=== PATIENT | male | born 1990 | race Caucasian/White ===

== ENCOUNTER → 2020-01-05 15:14 | Outpatient (BNVA) | payer BC, SELFPAY | PROVIDERS: Family Provider Nurse Practitioner; PCP Nurse Practitioner; Visit Provider Nurse Practitioner | DX: Z11.59 Encounter for screening for other viral diseases (principal) | CPT/HCPCS: 87635 ==

== ENCOUNTER → 2020-02-24 11:24 | Outpatient (BNVA) | payer BC, SELFPAY | PROVIDERS: Family Provider Nurse Practitioner; PCP Nurse Practitioner; Visit Provider Nurse Practitioner Family | DX: R05 Cough (principal) | CPT/HCPCS: 71046; 80053; 85025 ==

== ENCOUNTER → 2020-04-12 11:43 | Outpatient (BNVA) | payer BC, SELFPAY | PROVIDERS: Family Provider Nurse Practitioner; PCP Nurse Practitioner; Visit Provider Nurse Practitioner Family | DX: R19.7 Diarrhea, unspecified (principal); R53.83 Other fatigue; M54.9 Dorsalgia, unspecified; G89.29 Other chronic pain | CPT/HCPCS: 72072; 72100; 80053; 82306; 82607; 83630; 84550; 85025; 85651; 86038; 86140; 86431; 87338; 87493; 87506 ==

== ENCOUNTER → 2020-10-20 15:03 | Outpatient (BNVA) | payer OTHER, SELFPAY | PROVIDERS: Family Provider Nurse Practitioner; PCP Nurse Practitioner; Visit Provider Nurse Practitioner | DX: R05 Cough (principal); H61.23 Impacted cerumen, bilateral; J45.909 Unspecified asthma, uncomplicated | CPT/HCPCS: 71046; 85025 ==

== ENCOUNTER → 2021-05-19 11:23 | Outpatient (BNVA) | payer OTHER, SELFPAY | PROVIDERS: Family Provider Nurse Practitioner; PCP Nurse Practitioner Family; Visit Provider Nurse Practitioner Family | DX: Z13.6 Encounter for screening for cardiovascular disorders (principal); K21.9 Gastro-esophageal reflux disease without esophagitis; L60.8 Other nail disorders; R10.84 Generalized abdominal pain; M54.50 Low back pain, unspecified; G89.29 Other chronic pain; Z68.33 Body mass index [BMI] 33.0-33.9, adult | CPT/HCPCS: 80053; 80061; 82306; 82607; 84443; 85025; 86003 ==

== ENCOUNTER → 2021-05-26 09:53 | Outpatient (BNVA) | payer OTHER, SELFPAY | PROVIDERS: Family Provider Nurse Practitioner; PCP Nurse Practitioner Family; Visit Provider Nurse Practitioner Family | DX: Z20.822 Contact with and (suspected) exposure to COVID-19 (principal) | CPT/HCPCS: 87635 ==

== ENCOUNTER 2021-11-06 20:35 | Emergency (ER) | payer OTHER, SELFPAY ==
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
--- NOTE | 2021-11-06 20:37 | CTR_ITS ---
PROCEDURE INFORMATION: Exam: CT Head Without Contrast Exam date and time: 11/06/2021 10:07 PM Age: 31 years old Clinical indication: Injury or trauma; Fall; Blunt trauma (contusions or hematomas); Additional info: Head injury TECHNIQUE: Imaging protocol: Computed tomography of the head without contrast. Radiation optimization: All CT scans at this facility use at least one of these dose optimization techniques: automated exposure control; mA and/or kV adjustment per patient size (includes targeted exams where dose is matched to clinical indication); or iterative reconstruction. COMPARISON: CT Sinus wo IV contrast* [id number] 2015-05-13 09:40 RADIATION DOSE METRICS: Total DLP (mGy-cm): 891.71 FINDINGS: Brain: Normal. No hemorrhage. Unremarkable white matter. No mass effect. Cerebral ventricles: No ventriculomegaly. Paranasal sinuses: Visualized sinuses are unremarkable. No fluid levels. Mastoid air cells: Visualized mastoid air cells are well aerated. Bones/joints: Unremarkable. No acute fracture. Soft tissues: Right lateral scalp and subgaleal hematomas and lacerations. CT/CT head wo con* [id number] IMPRESSION: Right lateral scalp and subgaleal hematomas and lacerations.
[2021-11-06 21:00] VITALS: BP 123/76; PULSE 125; RESP 18; TEMP 37; O2SAT 95; BMI 33.0
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
[2021-11-06 22:14] VITALS: RESP 18
[2021-11-06] MEDS: ondansetron 2 mg/ML SDV 2 mL 4 MG IM (22:14)
[2021-11-06] MEDS: morphine 4 mg/mL SDV 1 mL IM (22:14)
[2021-11-06 23:15] VITALS: BP 127/73; PULSE 117; RESP 17; O2SAT 95
== END 2021-11-06 23:17 | disposition home or self-care (01) ==
PROVIDERS: Emergency Provider Emergency Medicine
DX: S01.01XA Laceration without foreign body of scalp, initial encounter (principal); W17.89XA Other fall from one level to another, initial encounter
CPT/HCPCS: 12002; 70450; 72125; 96372; 99284; J2270; J2405

== ENCOUNTER → 2022-12-31 13:54 | Outpatient (BNVA) | payer OTHER, SELFPAY | PROVIDERS: PCP Family Medicine; Visit Provider Family Medicine | DX: M25.559 Pain in unspecified hip (principal); K50.90 Crohn's disease, unspecified, without complications; K76.0 Fatty (change of) liver, not elsewhere classified; K21.9 Gastro-esophageal reflux disease without esophagitis; E03.9 Hypothyroidism, unspecified; M19.90 Unspecified osteoarthritis, unspecified site; E55.9 Vitamin D deficiency, unspecified | CPT/HCPCS: 80053; 82652; 83036; 85025; 85651; 86140 ==

== ENCOUNTER → 2023-01-09 10:29 | Outpatient (BNVA) | payer OTHER, SELFPAY | PROVIDERS: PCP Family Medicine; Visit Provider Family Medicine | DX: M25.551 Pain in right hip (principal); M25.552 Pain in left hip | CPT/HCPCS: 73521; 73523 ==

== ENCOUNTER 2023-01-24 08:03 | Outpatient (CLI) | payer OTHER, SELFPAY ==
--- NOTE | 2023-01-24 08:15 | US_ITS ---
WS: [id number] ULTRASOUND ABDOMEN LIMITED CLINICAL INFORMATION: hst of fatty liver disease COMPARISON: None. FINDINGS: Liver Size: Enlarged craniocaudal length: 22.8 cm. Echogenicity: Coarse surface nodularity: None. Mass (size and location): None. Bile ducts Intrahepatic ducts: Normal. Common bile duct diameter: 0.4 cm. Gallbladder Normal. Gallstones: None. Gallbladder sludge: None. Gallbladder wall thickening: None. Pericholecystic fluid: None. Sonographic Villa sign: Absent. Pancreas Echogenic. No peripancreatic fluid collections. Right kidney: Normal. Hydronephrosis: None. Size: 10.8 cm x 6.9 cm x 5.2 cm. Abdominal aorta and IVC Visualized portions are normal. Ascites: None. IMPRESSION: 1. Significant hepatomegaly with diffuse fatty infiltration. Recommend correlation with hepatic func tion studies. 2. No hydronephrosis in RIGHT kidney. 3. Normal common bile duct. 4. Normal gallbladder. 5. Echogenic pancreas can be seen with pancreatitis. Recommend correlation with pancreatic function studies. No fluid collections.
== END 2023-01-24 08:04 | disposition home or self-care (01) ==
PROVIDERS: PCP Family Medicine; Visit Provider Family Medicine
DX: K76.0 Fatty (change of) liver, not elsewhere classified (principal); R16.0 Hepatomegaly, not elsewhere classified
CPT/HCPCS: 76705